=== PATIENT | male | born 1950 | race Caucasian/White ===

== ENCOUNTER → 2016-04-07 | Outpatient (CLI) | payer OTHER, MEDICARE ==
--- NOTE | 2016-04-07 16:42 | DX ---
Bilateral hip series 3 views 1630 hours. History: Persistent bilateral hip pain for 6 months. Findings: There is mild hip joint space narrowing bilaterally with small marginal osteophytes. No sub chondral cysts are appreciated. The SI joints are normal in appearance except for some mild sclerosis on the left. Mild spurring is also seen at the symphysis. Surgical tacks are noted in the mid pelvis region. There are no lytic or sclerotic osseous lesions or evidence of fracture. Degenerative change s are noted of the lower lumbar spine on the right side. Impression: 1. Mild degenerative changes about the right and left hip. 2. Mild sclerosis left SI joint. 3. Degenerative changes lower lumbar spine on the right. 4. Mild spurring at the symphysis.
== END ==
LOC: CIMAGING 16:21
PROVIDERS: ATTEND Anesthesiology
DX: M25.551 Pain in right hip (principal); M25.552 Pain in left hip; M16.0 Bilateral primary osteoarthritis of hip; M53.3 Sacrococcygeal disorders, not elsewhere classified; M51.36 Other intervertebral disc degeneration, lumbar region
CPT/HCPCS: 73521-PO

== ENCOUNTER → 2016-10-01 | Outpatient (CLI) | payer OTHER, MEDICARE | LOC: CIMAGING 10:52 | PROVIDERS: ATTEND Clinical Nurse Specialist | DX: M51.36 Other intervertebral disc degeneration, lumbar region (principal) | CPT/HCPCS: 72100-PO ==

== ENCOUNTER → 2016-12-29 | Outpatient (CLI) | payer OTHER, MEDICARE | LOC: CIMAGING 09:29 | PROVIDERS: ATTEND Registered Nurse | DX: M19.071 Primary osteoarthritis, right ankle and foot (principal); M77.31 Calcaneal spur, right foot | CPT/HCPCS: 73610-PO ==

== ENCOUNTER → 2016-12-31 | Outpatient (CLI) | payer OTHER, MEDICARE | LOC: CIMAGING 13:08 | PROVIDERS: ATTEND Family Medicine | DX: M25.512 Pain in left shoulder (principal) | CPT/HCPCS: 73030-PO ==

== ENCOUNTER 2017-02-10 09:18 | Day surgery (SDC) | payer OTHER, MEDICARE ==
[2017-02-10] MEDS ORDERED: LIDOCAINE 1% 2 ML INJ ID PRN (09:27)
[2017-02-10] MEDS ORDERED: LR 1,000 ML IV ONE (09:27)
[2017-02-10] MEDS ORDERED: PROPOFOL/EMULSION 500 MG/50 ML BOTTLE IV ONE (11:24)
--- NOTE | 2017-02-10 11:25 | PDGENHP ---
History & Physical Chief Complaint: Epigastric pain, GERD Relevant Physical Exam: GEN: NAD. Cardiac: RRR. Lungs: CTA B. Abd: Soft, nt, nd
[2017-02-10] MEDS ORDERED: ONDANSETRON 4 MG/2 ML VIAL IVP PRN (11:32)
[2017-02-10] MEDS ORDERED: ALBUTEROL 3 ML DEYVIAL IH PRN (11:32)
[2017-02-10] MEDS ORDERED: LR 500 ML IV PRN (11:32)
[2017-02-10] MEDS ORDERED: NALOXONE HCL 0.4 MG/ML INJ IVP PRN (11:32)
--- NOTE | 2017-02-10 11:32 | PDANEPAE ---
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 - Neurologic History Hx Cerebrovascular Accident: No Hx Seizures: No Hx Dementia: No - Endocrine History Hx Diabetes: No - Renal History Hx Renal Disorders: No Renal History Comment: BPH HAS SCHEDULED TURP 04/05/15 - Liver History Hx Hepatic Disorders: No - Neurological & Psychiatric Hx Hx Neurological and Psychiatric Disorders: No - Cancer History Hx Cancer: No Cancer History Comment: MELANOMA - Congenital Disorder History Hx Congenital Disorders: No - GI History Hx Gastrointestinal Disorders: Yes Gastrointestinal History Comment: GERD - Other Health History Other Health History: hx updated 02/09/17 w/Dr Cole's progress notes - Chronic Pain History Chronic Pain: Yes (BACK PAIN) - Surgical History Prior Surgeries: TURP (?) 04-05-15. hernia [id number]/5/15 OPEN HEART WITH DOUTHITT. 09/2014 PAIN INJECTION WITH DENT NUVIA Review of Systems Review of Systems: - Exercise capacity METS (RN): 4 METS ANE Patient History - Allergies Allergies/Adverse Reactions: hydrocodone Allergy (Verified 02/09/17 17:40) Rash oxycodone Allergy (Verified 02/09/17 17:40) Rash - Home Medications Home Medications: Amlodipine Besylate 02/09/17 [Last Taken 02/09/17] Metoprolol Succinate 02/09/17 [Last Taken 02/10/17 08:00] Omeprazole 02/09/17 [Last Taken 02/09/17] POTASSIUM CL (KCl) 02/09/17 [Last Taken 02/09/17] traMADol 02/09/17 [Last Taken 02/09/17] Aleve Pm Caplet 02/10/17 [Last Taken 02/09/17] Herbals/Supplements -Info Only 02/10/17 [Last Taken 02/09/17] - NPO status NPO Since - Liquids (Date): 02/10/17 NPO Since - Liquids (Time): 07:00 NPO Since - Solids (Date): 02/09/17 NPO Since - Solids (Time): 20:30 - Smoking Hx Smoking Status: Never smoked - Family Anes Hx Family Hx Anesthesia Complications: NONE ANE Labs/Vital Signs - Vital Signs Blood Pressure: 166/98 Heart Rate: 60 Respiratory Rate: 16 O2 Sat (%): 95 Height: 180.34 cm Weight: 104.326 kg ANE Physical Exam - Airway Neck exam: decreased ROM, short neck Mallampati Score: Class 2 Mouth exam: normal dental/mouth exam, souza - Pulmonary Pulmonary: no respiratory distress, no rales or rhonchi, reduced air movement - Cardiovascular Cardiovascular: regular rate and rhythym, no murmur, rub, or gallop - ASA Status ASA Status: III ANE Anesthesia Plan Anesthesia Plan: GA with mask
[2017-02-10] MEDS ORDERED: LIDOCAINE 2% 5 ML SDV ONE (11:33)
--- NOTE | 2017-02-10 11:37 | POSTANESTH ---
Post Anesthetic Evaluation Cardiovascular Status: Normal, Stable Respiratory Status: Normal, Stable Level of Consciousness/Mental Status: Can Participate in Eval Pain Control: Adequate, Prn Tx Ordered Nausea/Vomiting Control: Adequate, Prn Tx Ordered Complications Possibly Related to Anesthesia: None Noted
--- NOTE | 2017-02-10 11:41 | GIREPORT ---
[facility] - Endoscopy Department Patient Name: Vitaliy Heck Procedure Date: 02/10/2017 11:15 AM Patient Type: Outpatient Attending MD/ ER Physician: Delmar Faust MD Procedure: Upper GI endoscopy Indications: Epigastric abdominal pain, Heartburn Providers: Delmar Faust MD Medicines: Monitored Anesthesia Care Complications: No immediate complications. Description of Procedure: After obtaining informed consent, the endoscope was passed under direct vision. Throughout the procedure, the patient's blood pressure, pulse, and oxygen saturations were monitored continuously. The Endoscope was intro duced through the mouth, and advanced to the second part of duodenum. The [facility] er GI endoscopy was accomplished without difficulty. The patient tolerated th e procedure well. Findings: The examined esophagus was normal. The Z-line was regular and was found 44 cm from the incisors. Localized mild inflammation characterized by erosions, erythema, friabi lity and granularity was found in the gastric antrum. Biopsies were taken wi th a cold forceps for histology. Verification of patient identification for the specimen was done by the physician and nurse using the patient's name a nd date. Estimated blood loss was minimal. The examined duodenum was normal. Biopsies were taken with a cold force ps for histology. Verification of patient identification for the specimen was done by the physician and nurse using the patient's name and date . Estimated blood loss was minimal. Estimated Blood Loss: Estimated blood loss: none. Post Op Diagnosis: - Normal esophagus. - Z-line regular, 44 cm from the incisors. - Gastritis. Biopsied. - Normal examined duodenum. Biopsied. Recommendation: - Discharge patient to home (with escort). - Resume previous diet. - Use Protonix (pantoprazole) 40 mg PO BID for 2 months. - Follow up in GI clinic as previously scheduled. - Await pathology results. Results are available within 10 days. - Thank you for allowing me to participate in the care of your patient. Attending Participation: I personally performed the entire procedure. Delmar Faust MD Delmar Faust MD 02/10/2017 11:40:43 AM This report has been signed electronicallyDelmar Faust MD Number of Addenda: 0 Note Initiated On: 02/10/2017 11:15 AM [email or web address]
[2017-02-10 12:04] VITALS: TEMP 98.2
[2017-02-10 13:04] VITALS: BP 169/102; PULSE 63; RESP 17; O2SAT 94
== END 2017-02-10 13:42 | disposition home or self-care (01) ==
LOC: FSGY 09:18
PROVIDERS: ATTEND Internal Medicine Gastroenterology
PROC: 0DB98ZX Excision of Duodenum, Via Natural or Artificial Opening Endoscopic, Diagnostic (ICD-10-PCS; principal; 2017-02-10 10:45)
PROC: 0DB68ZX Excision of Stomach, Via Natural or Artificial Opening Endoscopic, Diagnostic (ICD-10-PCS; principal; 2017-02-10 10:45)
DX: K29.70 Gastritis, unspecified, without bleeding (principal); R12 Heartburn; I10 Essential (primary) hypertension; J44.9 Chronic obstructive pulmonary disease, unspecified; G47.33 Obstructive sleep apnea (adult) (pediatric); Z88.5 Allergy status to narcotic agent
CPT/HCPCS: J2704

== ENCOUNTER → 2017-02-20 | Outpatient (CLI) | payer OTHER, MEDICARE | LOC: BHCLAF 09:15 | PROVIDERS: ATTEND Internal Medicine Cardiovascular Disease | DX: R53.83 Other fatigue (principal); I51.9 Heart disease, unspecified | CPT/HCPCS: 93306-PO ==

== ENCOUNTER → 2018-02-08 | Outpatient (CLI) | payer OTHER, MEDICARE | LOC: BHCLAF 10:00 | PROVIDERS: ATTEND Internal Medicine Cardiovascular Disease | DX: I10 Essential (primary) hypertension (principal) | CPT/HCPCS: 36415-PO; 93306-PO ==

== ENCOUNTER → 2018-04-15 | Outpatient (CLI) | payer OTHER, MEDICARE | LOC: CIMAGING 11:28 | PROVIDERS: ATTEND Registered Nurse | DX: M16.0 Bilateral primary osteoarthritis of hip (principal) | CPT/HCPCS: 73521-PO ==